=== PATIENT | female | born 1960 | race Caucasian/White ===

== ENCOUNTER 2024-10-24 02:10 | Outpatient (CLI) | payer OTHER, SELFPAY ==
--- NOTE | 2024-10-24 | DI.DEXA_ITS ---
Exam(s) XR DEXA BONE DENSITY W/WO ZORA EXAM: XR DEXA BONE DENSITY W/WO ZORA CLINICAL HISTORY: Screening for osteoporosis, Z13.820 TECHNIQUE: Routine DEXA evaluation of the lumbar spine, hip, or forearm. COMPARISON: No exams were available for comparison FINDINGS: Performed on a Hologic unit. Lateral image: No compression fracture evident. Lumbar Spine total T-score: -0.1 Hip total T-score:-0.7 Independent reading at the level of the femoral neck yields T-score of -0.7 Forearm total T-score: -2.0 IMPRESSION: Bone mineral density measures in the normal range for the lumbar spine and hip. Fracture risk is low at these levels. However, bone mineral density measures in osteopenia range at the level the wrist. Fracture risk at this level is moderate Note: Any spine fracture indicates 5x risk for subsequent spine fracture and 2x risk for subsequent h ip fracture. World Health Organization criteria for BMD interpretation classify patients: Normal...... T- Score at or above -1.0 Osteopenic... T- Score between -1.0 and -2.5 Osteoporosis... T-Score at or below -2.5
== END 2024-10-24 02:30 ==
PROVIDERS: PCP Family Medicine; Visit Provider Nurse Practitioner Adult Health
DX: Z13.820 Encounter for screening for osteoporosis (principal); M85.89 Other specified disorders of bone density and structure, multiple sites
CPT/HCPCS: 77080